=== PATIENT | female | born 1965 | race Caucasian/White ===

== ENCOUNTER → 2024-09-01 11:44 | Outpatient (REF) | payer BC, SELFPAY | LOC: RAD 11:44 | PROVIDERS: ATTENDING PHYSICIAN Nurse Practitioner Family; FAMILY PHYSICIAN Family Medicine | DX: R05.1 Acute cough (principal) | CPT/HCPCS: 71046 ==

== ENCOUNTER → 2025-05-04 10:19 | Outpatient (REF) | payer BC, SELFPAY | LOC: HWRAD 10:19 | PROVIDERS: ATTENDING PHYSICIAN Family Medicine | DX: R42 Dizziness and giddiness (principal); R47.89 Other speech disturbances | CPT/HCPCS: 70450 ==

== ENCOUNTER → 2025-05-11 14:07 | Outpatient (REF) | payer BC, SELFPAY | LOC: RCS 14:07 | PROVIDERS: ATTENDING PHYSICIAN Family Medicine | DX: R00.2 Palpitations (principal); R06.09 Other forms of dyspnea; R42 Dizziness and giddiness | CPT/HCPCS: 93017; 93350 ==